=== PATIENT | female | born 1985 | race Caucasian/White ===

== ENCOUNTER 2022-01-24 17:39 | Emergency (ER) | payer OTHER ==
[2022-01-24] MEDS ORDERED: NORCO 5-325 TA1 EACH PO (19:42)
[2022-01-24] MEDS ORDERED: FLEXERIL5 MG PO (19:42)
== END 2022-01-24 20:17 | disposition home or self-care (01) ==
LOC: FER 17:39
DX: S46.912A Strain of unspecified muscle, fascia and tendon at shoulder and upper arm level, left arm, initial encounter (principal); R07.9 Chest pain, unspecified; V43.52XA Car driver injured in collision with other type car in traffic accident, initial encounter; Y92.410 Unspecified street and highway as the place of occurrence of the external cause
CPT/HCPCS: 73030; 73060; 93005; J1885